=== PATIENT | female | born 1970 | race Caucasian/White ===

== ENCOUNTER 2018-12-28 07:23 | Day surgery (SDC) | payer OTHER ==
[2018-12-28] MEDS ORDERED: DEXMEDETOMIDINE HCL 200 MCG/2 ML VIAL IV ONE (08:48)
[2018-12-28] MEDS ORDERED: 0.9 % SODIUM CHLORIDE 100 ML IV.SOLN IV ONE (08:48)
[2018-12-28] MEDS ORDERED: PHENYLEPHRINE HCL 10 MG/1 ML ONE (08:48)
[2018-12-28] MEDS ORDERED: fentaNYL CITRATE/PF 100 MCG/2 ML INJ. ONE (08:48)
[2018-12-28] MEDS ORDERED: 0.9 % SODIUM CHLORIDE PF 10 ML VIAL IJ ONE (08:48)
[2018-12-28] MEDS ORDERED: LIDOCAINE HCL 1% PF 300MG/30ML VIAL ONE (08:48)
[2018-12-28] MEDS ORDERED: DEXAMETHASONE SODIUM PHOSPHATE 10 MG/ML VIAL ONE (08:48)
[2018-12-28] MEDS ORDERED: MIDAZOLAM HCL 2 MG/2 ML VIAL ONE (08:48)
[2018-12-28] MEDS ORDERED: PROPOFOL 200 MG/20 ML VIAL IV ONE (08:48)
[2018-12-28] MEDS ORDERED: LACTATED RINGERS 1,000 ML IV.SOLN IV ONE (08:48)
[2018-12-28] MEDS ORDERED: KETOROLAC TROMETHAMINE 30 MG/1ML VIAL ONE (10:12)
--- NOTE | 2018-12-30 14:37 | Operative Note ---
PROCEDURE: Lumbar Radiofrequency Ablation (bilateral L3-L4, L4-L5 and L5-S1 medial branch levels) LOCATION OF PROCEDURE: [facility]; [place], [place] DATE OF PROCEDURE: 12/28/2018 SURGEON: Dejan Howard M.D. ASSISTANTS: None ANESTHESIA: MAC PREOPERATIVE DIAGNOSES: 1. Lumbar spondylosis without myelopathy. 2. Chronic lumbago. 3. Chronic pain syndrome. POSTOPERATIVE DIAGNOSES: 1. Lumbar spondylosis without myelopathy. 2. Chronic lumbago. 3. Chronic pain syndrome. CHIEF COMPLAINT: Low back pain. PHYSICAL EXAM: On exam, the patient is awake and alert. Vital signs are stable. Heart is regular in rate and rhythm. Eyes PERRLA. Throat clear. Trachea midline. Lungs have good excursion. Abdomen is soft and nontender. The patient has distal lumbosacral tenderness as noted on previous examinations. HISTORY OF PRESENT ILLNESS: I had seen the patient preoperatively, written a history in the chart and reviewed the preop assessment per Lakia Ball NP. The patient is stable and ready for the procedure. I have gone through the procedure in detail with the patient and with her who is present. I have answered all questions. The benefits and risks were discussed with the patient. The consent form was signed. PLAN: We will proceed with the planned procedure as mentioned above. DESCRIPTION OF PROCEDURE: Preprocedure the patients name and date of were verified, confirmed planned procedure with patient, reviewed discharge instructions and a procedure consent was signed. IV was started per Anesthesia staff. Monitors were applied by Anesthesia staff. The patient was administered IV awake sedation/MAC to promote comfort per Anesthesia. The patient was placed in a prone position. The skin overlying the injection sites was prepped with ChloraPrep and draped in a sterile fashion. Procedural Pause: A procedural pause was performed verifying the correct patient, medical record number, allergies and surgical site immediately prior to starting the procedure. The target injection sites were identified with fluoroscopy. The skin overlying each identified injection site was anesthetized using 3 mL of 0.5% lidocaine MPF with a 25-gauge 1 inch needle. An 18-gauge cannula electrode needle was then advanced under fluoroscopic guidance through the respective skin wheal parallel to the x-ray beam utilizing a bullseye approach to the nerves corresponding to each selected facet joint. Corresponding nerves to cauterize involved the innervation supplying each facet joint from the descending medial branch of the dorsal ramus from the next higher level facet joint and from the ascending medial branch of the dorsal ramus at the same level (for L5-S1 the ascending branch of the L5 dorsal ramus). Nerves to cauterize corresponded to the facet joints as follows: for L3-L4, L4-L5 and L5-S1. To reach each lumbar facet joint median branch nerve from L1-L2 to L4-L5 the cannula needle was advanced to the periosteum medial aspect of the transverse process. If the L5-S1 joint was targeted, this corresponded to placing one cannula needle probe on the lateral aspect of the superior articulating process of the facet joint 1 cm above the junction with the sacral ala; a lateral view confirmed correct needle placement. A lateral image was obtained to confirm needle depth. Once the cannula electrode needle was placed, safe positioning was confirmed with motor stimulation at 2 Hz demonstrating multifidus muscle fasciculations but no motor stimulation in the lower extremities. Then 1.5 mL lidocaine 0.5% MPF mixed with steroid was injected through the cannula at each site; total dose of Depo-Medrol 80 mg. The needle tip curve was pointed medially. All needle tip curves were oriented with the concavity facing the periosteum. Then radiofrequency ablation was provided for 90 seconds at 80 degrees. The probes were then removed. The patient had excellent pain relief with no motor weakness in either lower extremity. The skin was washed off and dried. Bandaids were applied to injection sites. It should be noted that motor testing was performed and was negative following placement of the needles. The radiofrequency ablation was performed at 80 degrees for 90 seconds with Venom LifeShield needles. No rotation of the needle or secondary burn needed to be performed. The patient tolerated the procedure well without any untoward effects. Following the procedure she was brought to the Recovery Room. The patient did have some initial soreness at the injection site. The patient had initially stated that her pain was somewhat increased following the procedure, which is not necessarily uncommon. At that time, she had rated her pain at 8/10 in intensity. The patient was given some Toradol in the PACU, 30 mg IV. At the time of discharge she was in stable condition and rated her pain at 7/10 in intensity. As per my discussion with the patients PACU nurses, the patient appeared to be comfortable at the time of discharge. SPECIMENS: None ESTIMATED BLOOD LOSS: Less than 1 cc OPERATIVE COMPLICATIONS: None The patients preprocedure pain level was 7/10. The patients postprocedure pain level was 7/10. POST-PROCEDURE INSTRUCTIONS: The patient should followup with Dr. Anne Pardo in about 2 weeks time for reevaluation and medication refills. I, again, would like to thank Dr. Pardo for referral of this patient to me. We look forward to seeing her into the future as need be. Sincerely, Dejan Howard M.D. (dictated but not read) computer generated signature MN/pre cc: Anne Pardo M.D. [facility]
== END 2018-12-28 10:47 | disposition home or self-care (01) ==
LOC: OPSURG 07:23
PROVIDERS: ATTEND Pain Medicine Interventional Pain Medicine
DX: M47.816 Spondylosis without myelopathy or radiculopathy, lumbar region (principal); G89.4 Chronic pain syndrome; M54.5 Low back pain
CPT/HCPCS: 64635; 64636; J1885; J2001; J2250; J2370; J2704; J3010; J7120